=== PATIENT | female | born 1970 | race Caucasian/White ===

== ENCOUNTER 2016-06-10 20:11 | Emergency (ER) | payer OTHER ==
[2016-06-10] MEDS ORDERED: hydrOXYzine 25 MG TAB ONE (20:48)
[2016-06-10] MEDS ORDERED: METHYLPRED SOD SUCC 125 MG/2 ML VIAL ONE (20:49)
== END 2016-06-10 21:18 | disposition home or self-care (01) ==
LOC: ER 20:11
CPT/HCPCS: 96372

== ENCOUNTER 2016-07-06 19:39 | Emergency (ER) | payer OTHER | END 2016-07-06 20:46 | disposition home or self-care (01) | LOC: ER 19:39 | DX: H60.12 Cellulitis of left external ear (principal); J01.00 Acute maxillary sinusitis, unspecified; J01.20 Acute ethmoidal sinusitis, unspecified ==